=== PATIENT | male | born 2005 | race Two or more races ===

== ENCOUNTER 2025-06-12 19:15 | Inpatient (IN) | payer MEDICAID ==
[~2025-06-12] VITALS: Ht 165.1 cm; Wt 75.4 kg
[2025-06-12 20:07] LABS: PLATELET COUNT (AUTO) 338 K/uL (150-450); RED BLOOD CELL COUNT(AUTO) 4.62 MIL/uL (4.50-5.90); RED CELL DISTRIBUTION WIDTH 12.7 % (11.5-14.5); WHITE BLOOD COUNT (AUTO) 5.6 K/uL (4.5-11.0)
[2025-06-12 20:07] LABS: COVID AG,FIA SOURCE NASAL SWAB
[2025-06-12 20:25] LABS: CALCIUM, TOTAL 8.7 mg/dL (8.8-10.5); CREATININE 1.01 mg/dL (0.60-1.30); GLOMERULAR FILTR. RATE CALC > 60 mL/min (>60); GLUCOSE,RANDOM 93 mg/dL (70-110); SODIUM SERUM 141 mmol/L (136-145); UREA NITROGEN, BLOOD 11 mg/dL (7-18)
[2025-06-12 21:01] LABS: SARS-COV2 (COVID) ANTIGEN,FIA Negative (Negative)
[2025-06-12] MEDS: LORazepam 2 MG/ML VIAL IM ONE (21:45)
[2025-06-12] MEDS ORDERED: ZOLPIDEM TARTRATE 10 MG TABLET PO PRN (22:30)
[2025-06-13 00:03] VITALS: O2SAT 100
[2025-06-13 03:00] VITALS: BP 122/70; PULSE 61; RESP 18; TEMP 98.4; O2SAT 99
[2025-06-13] MEDS ORDERED: BACITRACIN 28 GM OINTMENT TP PRN (07:30)
[2025-06-13] MEDS ORDERED: BENZOCAINE/MENTHOL [CEPACOL] LOZENGE PO PRN (07:30)
[2025-06-13] MEDS ORDERED: OMEPRAZOLE 20 MG CAPSULE PO PRN (07:30)
[2025-06-13] MEDS ORDERED: ALBUTEROL SULFATE HFA 90 MCG/PUFF 8 GM INHALER IH PRN (07:30)
[2025-06-13] MEDS ORDERED: PETROLATUM,WHITE 28 GM JELLY TP PRN (07:30)
[2025-06-13] MEDS ORDERED: ACETAMINOPHEN 325 MG TABLET PO PRN (07:30)
[2025-06-13] MEDS ORDERED: LOPERAMIDE HCL 2 MG CAPSULE PO PRN (07:30)
[2025-06-13] MEDS ORDERED: IBUPROFEN 600 MG TABLET PO PRN (07:30)
[2025-06-13] MEDS ORDERED: ONDANSETRON 4 MG TABLET PO PRN (07:30)
[2025-06-13] MEDS ORDERED: MAGNESIUM HYDROXIDE SUSPENSION 30 ML UDCUP PO PRN (07:30)
[2025-06-13] MEDS ORDERED: MAG HYDROX/ALUMINUM HYD/SIMETH ES 30 ML SUSPENSION UDCUP PO PRN (07:30)
[2025-06-13] MEDS ORDERED: DOCUSATE SODIUM 100 MG CAPSULE PO PRN (07:30)
[2025-06-13 08:14] VITALS: BP 116/58; PULSE 63; RESP 17; TEMP 98.2; O2SAT 100
[2025-06-13] MEDS: NICOTINE POLACRILEX 2 MG LOZENGE PO PRN (12:10)
[2025-06-13 20:26] VITALS: BP 130/76; PULSE 80; RESP 17; TEMP 97.7; O2SAT 99
[2025-06-13] MEDS: MELATONIN 5 MG TABLET PO PRN (21:41)
[2025-06-14 08:21] VITALS: BP 122/77; PULSE 80; RESP 18; TEMP 97.8; O2SAT 99
== END 2025-06-14 16:40 | disposition home or self-care (01) | DRG 753 ==
LOC: EMS 19:18 → B2S 06-13 00:28
PROVIDERS: ADMIT Psychiatry & Neurology Psychiatry; ATTEND Psychiatry & Neurology Psychiatry
DX: F31.9 Bipolar disorder, unspecified (principal); F10.129 Alcohol abuse with intoxication, unspecified; F19.10 Other psychoactive substance abuse, uncomplicated; F20.9 Schizophrenia, unspecified; Z20.822 Contact with and (suspected) exposure to COVID-19; Y04.0XXA Assault by unarmed brawl or fight, initial encounter; Y90.9 Presence of alcohol in blood, level not specified
CPT/HCPCS: 80048; 85025; 99285; G0480; J1200; J1630; J2060